=== PATIENT | female | born 1970 | race Caucasian/White ===

== ENCOUNTER 2019-08-30 08:00 | Outpatient (RCR) | payer MEDICAID, SELFPAY ==
[2019-08-23 08:20] VITALS: BP 149/80; PULSE 67; RESP 18; TEMP 36.5; BMI 45.7
--- NOTE | 2019-08-23 09:46 | HP.PCM_ITS ---
(1) Ulcer of right leg Status: Chronic Current Visit: Yes Qualifiers: Non-pressure ulcer stage: with fat layer exposed Qualified Code(s): L97.912 - Non-pressure chronic ulcer of unspecified part of right lower leg with fat layer exposed Code(s): L97.919 - Non-pressure chronic ulcer of unspecified part of right lower leg with unspecified severity (2) Varicose veins with ulcer and inflammation Status: Chronic Current Visit: Yes Code(s): I83.209 - Varicose veins of unspecified lower extremity with both ulcer of unspecified site and infl ammation; L97.909 - Non-pressure chronic ulcer of unspecified part of unspecified lower leg with unspecified severity (3) Chronic venous insufficiency Status: Chronic Current Visit: Yes Code(s): I87.2 - Venous insufficiency (chronic) (peripheral) (4) Leg swelling Status: Chronic Current Visit: Yes Code(s): M79.89 - Other specified soft tissue disorders (5) Leg edema Status: Chronic Current Visit: Yes Code(s): R60.0 - Localized edema (6) Morbid obesity with BMI of 45.0-49.9, adult Status: Chronic Current Visit: Yes Code(s): E66.01 - Morbid (severe) obesity due to excess calories; Z68.42 - Body mass index (BMI) 45.0-49.9, adult (7) Fibromyalgia Status: Chronic Current Visit: No Code(s): M79.7 - Fibromyalgia (8) Lumbar disc disease Status: Chronic Current Visit: No Code(s): M51.9 - Unspecified thoracic, thoracolumbar and lumbosacral intervertebral disc disorder (9) Anemia Status: Chronic Current Visit: No Code(s): D64.9 - Anemia, unspecified (10) Hypertension Status: Chronic Current Visit: No Code(s): I10 - Essential (primary) hypertension (11) Asthma Status: Chronic Current Visit: No Code(s): J45.909 - Unspecified asthma, uncomplicated (12) Medical marijuana use Status: Chronic Current Visit: No Code(s): Z79.899 - Other long term care phlebotomist (current) drug therapy History of Present Illness Date of Service: 08/23/19 Chief Complaint: Chronic, nonhealing ulceration on the right anterior tibial surface, associated with lower extremity swelling and edema History of Wound: The patient is a 49-year-old morbidly obese female who presents with an ulceration on the right anterior tibial surface. The ulceration has been present since November 2018. The patient feels as though this may have started as a bug bite. Nonetheless, she has known chronic venous insufficiency and varicose veins with inflammation, but has done very little by conservative means to address the issues. She relates swelling and edema in her lower extremities chronically. She denies a history of thrombophlebitis. She sleeps in a relatively recumbent position at night. She claims to be relatively active. She has had no bleeding from the ulcerated site. She has used combination of remedies for the ulceration, including topical antibiotic ointment, plain Band-Aids, and dry gauze. The ulceration has failed to heal. The patient has undergone venous duplex examination elsewhere in the recent past, the results of which are not available. Graduated compression stockings were recommended, but have not been implemented. Past Medical History Past Medical History: Chronic Problems Ulcer of right leg (Chronic) Varicose veins with ulcer and inflammation (Chronic) Chronic venous insufficiency (Chronic) Leg swelling (Chronic) Leg edema (Chronic) Morbid obesity with BMI of 45.0-49.9, adult (Chronic) Fibromyalgia (Chronic) Lumbar disc disease (Chronic) Anemia (Chronic) Hypertension (Chronic) Asthma (Chronic) Medical marijuana use (Chronic) Past Medical History: The patient has multiple medical problems, as documented elsewhere. Her history is negative for myocardial infarction, congestive heart failure, diabetes mellitus, cerebrovascular accident, cancer, renal disease, thyroid disease, and hyperlipidemia. Surgical History: - - Patient has a history of tonsillectomy in 1985. She is undergone wisdom tooth extraction in the past. She underwent surgery for an ectopic in 2001. Tubal ligation was performed in 2006. She is undergone cholecystectomy in the past. She is a G4, P2 Ab2. Allergies/Adverse Reactions: Allergies azithromycin Allergy (Verified 08/23/19 08:47) Fever and skin rash Sulfa (Sulfonamide Antibiotics) Allergy (Verified 08/23/19 08:47) Anaphylaxis Home Medications: Ambulatory Orders Medication Instructions Recorded ASA/Salicylam/Acetaminoph/Caff 1 ea PO 08/23/19 [Pain Relief Tablet] Amlodipine [Norvasc] 5 mg PO DAILY 08/23/19 Ascorbic Acid [Vitamin C] 1,000 mg PO 08/23/19 Etodolac [Lodine] 500 mg PO BID 08/23/19 Folic Acid 0.8 mg PO 08/23/19 Furosemide [Lasix] 20 mg PO DAILY 08/23/19 Lansoprazole [Prevacid] 30 mg PO BID 08/23/19 Loratadine [Claritin] 10 mg PO DAILY 08/23/19 Methocarbamol 500 mg PO BID 08/23/19 Montelukast [Singulair] 10 mg PO DAILY 08/23/19 - Family History Paternal - - The patient's father is living, aged 82, with a history of heart disease. Patient's mother is 84 years of age, with a history of breast cancer and thyroid cancer. Social History: Patient is . 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 Patient is and lives with her . Lives: Spouse/ Significant Other Tobacco Use: Non-smoker Alcohol: None Drugs: - - The patient uses medical marijuana. Review of Systems Constitutional: Denies: Chills, Fever, Weight Change Eyes: Denies: Pain, Vision Change HEENT: Denies: Difficulty Hearing, Difficulty Swallowing, Sinus Congestion Cardiovascular: Denies: Chest Pain, Palpitations Respiratory: Denies: Cough, Shortness of Breath Gastrointestinal: Denies: Diarrhea, Nausea, Vomiting Genitourinary: Denies: Dysuria, Hematuria Endocrine: Denies: Heat/ Cold Intolerance, Polydipsia, Polyuria Hematologic/ Lymphatic: Denies: Easy Bruising, Easy Bleeding - Physical Exam Vital Signs Temp Pulse Resp BP 97.7 F L 67 18 149/80 H 08/23/19 08:20 08/23/19 08:20 08/23/19 08:20 08/23/19 08:20 General: Alert, Oriented x3, Cooperative, No apparent distress, Well developed, Well nourished, - - The patient is morbidly obese. HEENT: Atraumatic, PERRLA, EOMI, Normocephalic Oral: Moist Mucosa Neck: Supple, No JVD, Negative Carotid Bruits, Negative Hepatojugular Reflux, No Nodes, No Nuchal Rigidity, Trachea Midline Lungs: Clear to auscultation, Normal air movement, No rhonchi, No wheeze, No rales Cardiovascular: Regular rate, Regular Rhythm, Normal S1, Normal S2, No murmurs Abdomen: Soft, Non Tender, Non-Distended, Obese Extremities: No clubbing, No cyanosis, No Calf Tenderness, - - Only very slight swelling and edema are noted in the patient's lower extremities. Multiple varicosities are noted bilaterally in the lower extremities. Some medium to large varicosities are noted in the area of the ulceration, located on the right anterior tibial surface. There is a moderate amount of bioburden and nonviable tissue present at the surface of the ulceration on the right anterior tibial surface. There is no sign of infection or cellulitis. Dimensions are documented elsewhere. Skin: No rashes Wound Measurements and Assessment WC - Nurse 1 - General Ulcer Measurement Start: 08/23/19 08:20 Freq: Status: Active Protocol: Activity Type Activity Date Activity User E-Sign Co-Sign Detail Recorded Client Recorded Date Recorded By Document 08/23/19 08:20 BS [id number] 08/23/19 08:38 BS 08/23/19 08:20 Wound Center Nurse 1 [Ulcer Assessment] #1 Right [place] -Combined with other wound No -Current Size (cm) - Length 0.1 -Current Size (cm) - Width 0.1 -Current Size (cm) - Depth 0.1 -Total Square Cm 0.01 -Date of Last Picture (Recall this 08/23/19 field) -Photo Taken Yes -Exudate Amt None Present -Wound Margin Flat & Intact -Texture (Richa-wound Skin Appearance) Assessed, Localized Edema ,Scarring -Moisture (Richa-wound Skin Appearance Assessed,Dry/ ) Scaly -Color (Richa-wound Skin Appearance) Assessed, Hemosiderin Staining -Temperature (Richa-wound Skin No Abnormality Appearance) (Pt Warm) -Tenderness on Palpation (Richa-wound No Skin Appearance) -Ulcer Cleansing Rinsed/ Irrigated with Saline -Foul Odor after Cleansing No -Anesthetic Used 5% Lidocaine Gel [Edema Assessment] -Lower Limb Edema Present Yes -Point of measurement (cm from the 46.6 medial instep) -Point of Measurement (cm from the 25.2 medial instep) -Left Calf (cm) 45.7 -Left Ankle (cm) 24.5 WC - Nurse 2 - General Ulcer CM Notes Start: 08/23/19 08:20 Freq: Status: Active Protocol: Activity Type Activity Date Activity User E-Sign Co-Sign Detail Recorded Client Recorded Date Recorded By Document 08/23/19 09:09 DV [id number] 08/23/19 09:23 DV 08/23/19 09:09 Wound Center Nurse 2 [Procedure/Treatment] #1 Right [place] -Time 09:10 -Correct Patient Yes -Correct Side, Site, Position Yes -Correct Procedure Yes -Procedure Performed Yes -Type of Procedure Debridement -Clinical Debridement Subcutaneous -Post Debridement Size (cm) - Length 0.5 -Post Debridement Size (cm) - Width 0.6 -Post Debridement Size (cm) - Depth 0.2 -Total Square Cm 0.30 -Wound/Ulcer Outcome Not Healed -Ulcer Cleansing Rinsed/ Irrigated with Saline -Foul Odor after Cleansing No -Bioengineered Tissue No -Bleeding Controlled with Pressure -Offloading No -Treatment Response Procedure Tolerated Well [See Physician Procedure note for Specifics] Pain Scale: 0-10 Numeric [Pain] -Is Patient Pain Free? Yes Musculoskeletal: No Muscle Wasting Neurological: Cranial nerves II-XII grossly intact, Neuro grossly intact Psych/Mental Status: Normal Affect, Appropriate, Alert and oriented to time, place, person, mood and affect Debridement Note Post-Debridement Measurements/Treatment WC - Nurse 2 - General Ulcer CM Notes Start: 08/23/19 08:20 Freq: Status: Active Protocol: Activity Type Activity Date Activity User E-Sign Co-Sign Detail Recorded Client Recorded Date Recorded By Document 08/23/19 09:09 DV [id number] 08/23/19 09:23 DV 08/23/19 09:09 Wound Center Nurse 2 #1 Right [place] -Time 09:10 -Correct Patient Yes -Correct Side, Site, Position Yes -Correct Procedure Yes -Procedure Performed Yes -Type of Procedure Debridement -Clinical Debridement Subcutaneous -Post Debridement Size (cm) - Length 0.5 -Post Debridement Size (cm) - Width 0.6 -Post Debridement Size (cm) - Depth 0.2 -Total Square Cm 0.30 -Wound/Ulcer Outcome Not Healed -Ulcer Cleansing Rinsed/ Irrigated with Saline -Foul Odor after Cleansing No -Bioengineered Tissue No -Bleeding Controlled with Pressure -Offloading No -Treatment Response Procedure Tolerated Well Pain Scale: 0-10 Numeric Is Patient Pain Free? Yes Laterality: Right - Anterior tibial surface Type of Debridement: Excisional debridement Anesthesia Used: 5% Lidocaine Gel Depth: Down to and including healthy tissue, in the subcutaneous layer Percentage of wound debrided: 100 Instrument Used: 5mm curette Tissue Removed: Bioburden and nonviable tissue Severity: Fat Layer Exposed Amount of bleeding with debridement: Mild Bleeding Controlled with: Compression and gauze Patient tolerated procedure well Assessment/Plan Active Problems Ulcer of right leg (Chronic) Varicose veins with ulcer and inflammation (Chronic) Chronic venous insufficiency (Chronic) Leg swelling (Chronic) Leg edema (Chronic) Morbid obesity with BMI of 45.0-49.9, adult (Chronic) Assessment: This is a 49-year-old morbidly obese female who presents with a chronic, nonhealing ulceration on the right anterior tibial surface. Patient has multiple medical problems, documented elsewhere. She is known to have a history of chronic venous insufficiency and varicose veins with inflammation. Despite her chronic venous disease, she has done very little in terms of conservative treatment measures. She does sleep on a flat surface at night. She claims to be relatively active. Plan: Curative treatment measures are to be implemented with respect to the patient's venous disease. The patient, and her at the bedside, have been counseled as to leg elevation. Patient's legs are to be elevated as much as possible, even during daytime hours. Leg elevation is to be to heart level, or higher. She is to continue sleeping on a flat surface at night. Prolonged idle sitting has been discouraged. Activity has been encouraged. Weight loss has been recommended, as the patient is morbidly obese. Compression will be initiated initially by means of SurePress wraps, which will be applied daily by the patient. The patient is to be instructed in the appropriate means of application of her wraps. Ultimately, it is anticipated that we will transition to the use of graduated compression stockings, of at least 20 to 30 mmHg compression. Patient has moderate drainage from her right lower extremity ulceration, we are to use MediHoney as a primary dressing, and gauze as a secondary dressing. Patient is to be instructed in the appropriate means of application. We are to obtain routine laboratory studies, including a CBC, comprehensive metabolic profile, and a serum prealbumin. A noninvasive lower extremity venous study will also be obtained, as well as a noninvasive lower extremity arterial study. The patient will return in 1 week for reassessment. Additional measures will be implemented based upon the patient's evolving clinical course. Influenza vaccine was not administered today. The patient is not a smoker. Patient weighs 292 pounds. She stands 5 feet 7 inches tall. Her BMI is 45.7, which places her in a class III obesity category. Weight loss has been recommended, and collaboration with her primary care physician in this regard has been advised.
[2019-08-23 11:59] LABS: Erythrocyte Sedimentation Rate 11 mm/hr (0-30)
[2019-08-23 12:26] LABS: ALB/GLOB Ratio 1.1 RATIO (0.9-2.4); AST(SGOT) 27 U/L (15-37); Alanine Aminotransfer ALT/SGPT 50 U/L (13-56); Alkaline Phosphatase 89 U/L (45-117); Anion Gap 8 (5-15); BUN 9 mg/dL (7-18); BUN/Creat Ratio 16.3 RATIO (10-20); Calcium,Total 9.1 mg/dL (8.5-10.1); Chloride 104 mmol/L (98-107); Creatinine, Serum 0.55 mg/dL (0.55-1.02); EST Glomerular Filtration Rate 124 mL/min (>60); Est Glom Filt Rate - Afr Amer 150 mL/min (>60); Globulin 3.8 g/dL (2.2-4.2); Glucose 85 mg/dL (74-106); Potassium 3.5 mmol/L (3.5-5.1); Prealbumin 21.8 mg/dL (20.0-40.0); Protein, Total 7.8 g/dL (6.4-8.2); Sodium Level 142 mmol/L (136-145)
[2019-08-23 12:29] LABS: Hematocrit 46.5 % (37-47); Hemoglobin 14.9 g/dL (12.0-15.0); Mean Corpuscular Volume 87.2 fL (81-99); Mean Platelet Vol. 11.3 fl (6.2-12.0); Platelet Count 301 K/mm3 (150-450); RBC Distribution Width CV 14.5 % (11.6-14.6); RBC Distribution Width SD 45.5 fl (35.1-43.9); Red Blood Count 5.33 M/mm3 (4.2-5.4); White Blood Count 7.2 K/mm3 (4.4-11.0)
[2019-08-30 08:04] VITALS: BP 164/107; PULSE 83; RESP 18; TEMP 36.6; BMI 45.7
--- NOTE | 2019-08-30 08:58 | PCM.WC.HP ---
(1) Ulcer of right leg Status: Chronic Current Visit: Yes Qualifiers: Non-pressure ulcer stage: with fat layer exposed Qualified Code(s): L97.912 - Non-pressure chronic ulcer of unspecified part of right lower leg with fat layer exposed Code(s): L97.919 - Non-pressure chronic ulcer of unspecified part of right lower leg with unspecified severity (2) Varicose veins with ulcer and inflammation Status: Chronic Current Visit: Yes Code(s): I83.209 - Varicose veins of unspecified lower extremity with both ulcer of unspecified site and inflammation; L97.909 - Non-pressure chronic ulcer of unspecified part of unspecified lower leg with unspecified severity (3) Chronic venous insufficiency Status: Chronic Current Visit: Yes Code(s): I87.2 - Venous insufficiency (chronic) (peripheral) (4) Leg swelling Status: Chronic Current Visit: Yes Code(s): M79.89 - Other specified soft tissue disorders (5) Leg edema Status: Chronic Current Visit: Yes Code(s): R60.0 - Localized edema (6) Morbid obesity with BMI of 45.0-49.9, adult Status: Chronic Current Visit: Yes Code(s): E66.01 - Morbid (severe) obesity due to excess calories; Z68.42 - Body mass index (BMI) 45.0-49.9, adult (7) Fibromyalgia Status: Chronic Current Visit: No Code(s): M79.7 - Fibromyalgia (8) Lumbar disc disease Status: Chronic Current Visit: No Code(s): M51.9 - Unspecified thoracic, thoracolumbar and lumbosacral intervertebral disc disorder (9) Anemia Status: Chronic Current Visit: No Code(s): D64.9 - Anemia, unspecified (10) Hypertension Status: Chronic Current Visit: No Code(s): I10 - Essential (primary) hypertension (11) Asthma Status: Chronic Current Visit: No Code(s): J45.909 - Unspecified asthma, uncomplicated (12) Medical marijuana use Status: Chronic Current Visit: No Code(s): Z79.899 - Other long term care pharmacist (current) drug therapy History of Present Illness Date of Service: 08/30/19 Chief Complaint: Chronic, nonhealing ulceration on the right anterior tibial surface, associated with lower extremity swelling and edema History of Wound: The patient is a 49-year-old morbidly obese female who presented with an ulceration on the right anterior tibial surface. The ulceration had been present since November 2018. The patient felt as though this may have started as a bug bite. Nonetheless, she has known chronic venous insufficiency and varicose veins with inflammation, but has done very little by conservative means to address the issues. She relates swelling and edema in her lower extremities chronically. She denies a history of thrombophlebitis. She sleeps in a relatively recumbent position at night. She claims to be relatively active. She has had no bleeding from the ulcerated site. She has used combination of remedies for the ulceration, including topical antibiotic ointment, plain Band-Aids, and dry gauze. The ulceration has failed to heal. The patient has undergone venous duplex examination elsewhere in the recent past, the results of which are not available. Graduated compression stockings were recommended, but have not been implemented. Past Medical History Past Medical History: Chronic Problems Ulcer of right leg (Chronic) Varicose veins with ulcer and inflammation (Chronic) Chronic venous insufficiency (Chronic) Leg swelling (Chronic) Leg edema (Chronic) Morbid obesity with BMI of 45.0-49.9, adult (Chronic) Fibromyalgia (Chronic) Lumbar disc disease (Chronic) Anemia (Chronic) Hypertension (Chronic) Asthma (Chronic) Medical marijuana use (Chronic) Surgical History: - - Patient has a history of tonsillectomy in 1985. She is undergone wisdom tooth extraction in the past. She underwent surgery for an ectopic in 2001. Tubal ligation was performed in 2006. She is undergone cholecystectomy in the past. She is a G4, P2 Ab2. Allergies/Adverse Reactions: Allergies azithromycin Allergy (Verified 08/23/19 08:47) Fever and skin rash Sulfa (Sulfonamide Antibiotics) Allergy (Verified 08/23/19 08:47) Anaphylaxis Home Medications: Ambulatory Orders Medication Instructions Recorded ASA/Salicylam/Acetaminoph/Caff 1 ea PO 08/23/19 [Pain Relief Tablet] Amlodipine [Norvasc] 5 mg PO DAILY 08/23/19 Ascorbic Acid [Vitamin C] 1,000 mg PO 08/23/19 Etodolac [Lodine] 500 mg PO BID 08/23/19 Folic Acid 0.8 mg PO 08/23/19 Furosemide [Lasix] 20 mg PO DAILY 08/23/19 Lansoprazole [Prevacid] 30 mg PO BID 08/23/19 Loratadine [Claritin] 10 mg PO DAILY 08/23/19 Methocarbamol 500 mg PO BID 08/23/19 Montelukast [Singulair] 10 mg PO DAILY 08/23/19 - Family History Paternal - - The patient's father is living, aged 82, with a history of heart disease. Patient's mother is 84 years of age, with a history of breast cancer and thyroid cancer. Lives: Spouse/ Significant Other Tobacco Use: Non-smoker Alcohol: None Drugs: - - The patient uses medical marijuana. Review of Systems Constitutional: Denies: Chills, Fever, Weight Change Eyes: Denies: Pain, Vision Change HEENT: Denies: Difficulty Hearing, Difficulty Swallowing, Sinus Congestion Cardiovascular: Denies: Chest Pain, Palpitations Respiratory: Denies: Cough, Shortness of Breath Gastrointestinal: Denies: Diarrhea, Nausea, Vomiting Genitourinary: Denies: Dysuria, Hematuria Endocrine: Denies: Heat/ Cold Intolerance, Polydipsia, Polyuria Hematologic/ Lymphatic: Denies: Easy Bruising, Easy Bleeding - Physical Exam Vital Signs Temp Pulse Resp BP 97.8 F 83 18 164/107 H 08/30/19 08:04 08/30/19 08:04 08/30/19 08:04 08/30/19 08:04 General: Alert, Oriented x3, Cooperative, No apparent distress, Well developed, Well nourished, - - The patient is obese. HEENT: Atraumatic, PERRLA, EOMI, Normocephalic Oral: Moist Mucosa Neck: No JVD Lungs: Normal air movement Abdomen: Non-Distended, Obese Extremities: No clubbing, No cyanosis, No edema, No Calf Tenderness, - - There appears to be no significant swelling or edema in the patient's right lower extremity. The ulceration on the right anterior tibial surface persists. It is little changed in size or appearance. Dimensions are documented elsewhere. There is a moderate amount of bioburden and nonviable tissue present. There is also the new development of irma-ulcer erythema, appearing to be cellulitic in nature. Dimensions are documented elsewhere. Wound Measurements and Assessment WC - Nurse 1 - General Ulcer Measurement Start: 08/23/19 08:20 Freq: Status: Active Protocol: Activity Type Activity Date Activity User E-Sign Co-Sign Detail Recorded Client Recorded Date Recorded By Document 08/30/19 08:04 DL [id number] 08/30/19 08:14 DL 08/30/19 08:04 Wound Center Nurse 1 [Ulcer Assessment] #1 Right [place] -Current Size (cm) - Length 1.2 -Current Size (cm) - Width 0.8 -Current Size (cm) - Depth 0.2 -Total Square Cm 0.96 -Photo Taken No -Exudate Amt Small -Exudate Type Serosanguineous -Wound Margin Distinct, Outline Attached -Granulation Amt Large (67-100%) -Granulation Quality Red -Necrosis Amt Small (1-33%) -Necrotic Tissue Type Adherent Slough -Structure Exposed N/A -Texture (Irma-wound Skin Appearance) Scarring -Moisture (Irma-wound Skin Appearance No Abnormality ) -Color (Irma-wound Skin Appearance) Erythema,Rubor -Temperature (Irma-wound Skin No Abnormality Appearance) (Pt Warm) -Tenderness on Palpation (Irma-wound No Skin Appearance) -Ulcer Cleansing Rinsed/ Irrigated with Saline -Foul Odor after Cleansing No -Anesthetic Used 4% Lidocaine Solution,5% Lidocaine Gel [Edema Assessment] -Right Calf (cm) 47.5 -Right Ankle (cm) 23.4 WC - Nurse 2 - General Ulcer CM Notes Start: 08/23/19 08:20 Freq: Status: Active Protocol: Activity Type Activity Date Activity User E-Sign Co-Sign Detail Recorded Client Recorded Date Recorded By Document 08/30/19 08:44 DV [id number] 08/30/19 08:52 DV 08/30/19 08:44 Wound Center Nurse 2 [Procedure/Treatment] #1 Right [place] -Time 08:44 -Correct Patient Yes -Correct Side, Site, Position Yes -Correct Procedure Yes -Procedure Performed Yes -Type of Procedure Debridement -Clinical Debridement Subcutaneous -Post Debridement Size (cm) - Length 1.0 -Post Debridement Size (cm) - Width 1.0 -Post Debridement Size (cm) - Depth 0.2 -Total Square Cm 1.00 -Wound/Ulcer Outcome Not Healed -Ulcer Cleansing Rinsed/ Irrigated with Saline -Foul Odor after Cleansing No -Bioengineered Tissue No -Bleeding Controlled with Pressure -Offloading No -Treatment Response Procedure Tolerated Well [See Physician Procedure note for Specifics] Pain Scale: 0-10 Numeric [Pain] -Is Patient Pain Free? Yes Musculoskeletal: No Muscle Wasting Neurological: Cranial nerves II-XII grossly intact, Neuro grossly intact Psych/Mental Status: Normal Affect, Appropriate, Alert and oriented to time, place, person, mood and affect Debridement Note Post-Debridement Measurements/Treatment WC - Nurse 2 - General Ulcer CM Notes Start: 08/23/19 08:20 Freq: Status: Active Protocol: Activity Type Activity Date Activity User E-Sign Co-Sign Detail Recorded Client Recorded Date Recorded By Document 08/23/19 09:09 DV [id number] 08/23/19 09:23 DV Document 08/30/19 08:44 DV [id number] 08/30/19 08:52 DV 08/23/19 08/30/19 09:09 08:44 Wound Center Nurse 2 #1 Right [place] -Time 09:10 08:44 -Correct Patient Yes Yes -Correct Side, Site, Position Yes Yes -Correct Procedure Yes Yes -Procedure Performed Yes Yes -Type of Procedure Debridement Debridement -Clinical Debridement Subcutaneous Subcutaneous -Post Debridement Size (cm) - Length 0.5 1.0 -Post Debridement Size (cm) - Width 0.6 1.0 -Post Debridement Size (cm) - Depth 0.2 0.2 -Total Square Cm 0.30 1.00 -Wound/Ulcer Outcome Not Healed Not Healed -Ulcer Cleansing Rinsed/ Rinsed/ Irrigated with Irrigated with Saline Saline -Foul Odor after Cleansing No No -Bioengineered Tissue No No -Bleeding Controlled with Pressure Pressure -Offloading No No -Treatment Response Procedure Procedure Tolerated Well Tolerated Well Pain Scale: 0-10 Numeric Is Patient Pain Free? Yes Yes Laterality: Right - Anterior tibial surface Type of Debridement: Excisional debridement Anesthesia Used: 5% Lidocaine Gel Depth: Down to and including healthy tissue, in the subcutaneous layer Percentage of wound debrided: 100 Instrument Used: 5mm curette Tissue Removed: Bioburden and nonviable tissue. Severity: Fat Layer Exposed Amount of bleeding with debridement: Mild Bleeding Controlled with: Compression and gauze Patient tolerated procedure well - Although the patient did tolerate the debridement procedure, she did experience a mild amount of discomfort. Topical lidocaine gel had been previously applied. Assessment/Plan Active Problems Ulcer of right leg (Chronic) Varicose veins with ulcer and inflammation (Chronic) Chronic venous insufficiency (Chronic) Leg swelling (Chronic) Leg edema (Chronic) Morbid obesity with BMI of 45.0-49.9, adult (Chronic) Assessment: This is a 49-year-old morbidly obese female who presents with a chronic, nonhealing ulceration on the right anterior tibial surface. Patient has multiple medical problems, documented elsewhere. She is known to have a history of chronic venous insufficiency and varicose veins with inflammation. Despite her chronic venous disease, she has done very little in terms of conservative treatment measures. She does sleep on a flat surface at night. She claims to be relatively active. Patient has undergone a battery of laboratory tests, the results of which are as follows: Glucose 85, BUN 9, creatinine 0.55, total protein 7.8, albumin 4.0, calcium 9.1, AST 27, alkaline phosphatase 89, ALT 50, sodium 142, potassium 3.5, chloride 104, prealbumin 21.8, white blood count 7.2, hemoglobin 14.9, hematocrit 46.5, platelets 301,000, sed rate 11. These laboratory results are normal. The patient is scheduled to undergo a noninvasive lower extremity arterial study and a venous duplex examination in 6 days, 1 day prior to her next follow-up appointment. Plan: Conservative treatment measures are to be continued with respect to the patient's venous disease. The patient has been counseled as to leg elevation. Patient's legs are to be elevated as much as possible, even during daytime hours. Leg elevation is to be to heart level, or higher. She is to continue sleeping on a flat surface at night. Prolonged idle sitting has been discouraged. Activity has been encouraged. Weight loss has been recommended, as the patient is morbidly obese. Compression will be continued by means of SurePress wraps, which will be applied daily by the patient. The patient has to be instructed in the appropriate means of application of her wraps. Ultimately, it is anticipated that we will transition to the use of graduated compression stockings, of at least 20 to 30 mmHg compression. We are to transition from the use of MediHoney to the use of Promogran, which will be applied topically on a daily basis. Consideration had been given to the use of Felisa, but the patient claims an allergy to silver. Patient is to be instructed in the appropriate means of application of Promogran. We will monitor the patient's response to the use of Promogran. Given the irma-ulcer erythema noted today, swab cultures have been obtained for both aerobic and anaerobic bacterial growth. We will await these results, and respond accordingly. We will await the results of the patient's vascular studies, scheduled prior to her follow-up visit in 1 week. . Additional measures will be implemented based upon the patient's evolving clinical course. Optimization of the patient's nutrition has been recommended. Influenza vaccine was not administered today. The patient is not a smoker. Patient weighs 292 pounds. She stands 5 feet 7 inches tall. Her BMI is 45.7, which places her in a class III obesity category. Weight loss has been recommended, and collaboration with her primary care physician in this regard has been advised.
[2019-08-30 14:16] LABS: M R Staph aureus DNA By PCR Negative (Negative); Probe Check PASS; Specimen Processing Control PASS; Staph aureus DNA By PCR POSITIVE (Negative)
--- NOTE | 2019-09-02 14:28 | WC ---
DR THOMAS REVIEWED WOUND CX'S. GIVES ORDER FOR AUGMENTIN 875MG 1 PO BID X 10 DAYS. 20 TABS, NO REFILLS. CALLED PT AND VERIFIED ALLERGIES. RX CALLED TO [facility] PER PT PREFERENCE.
== END 2019-09-06 23:59 ==
LOC: WC 08:00
PROVIDERS: Referring Provider Surgery; Visit Provider Surgery
DX: I83.218 Varicose veins of right lower extremity with both ulcer of other part of lower extremity and inflammation (principal); L97.812 Non-pressure chronic ulcer of other part of right lower leg with fat layer exposed; E66.01 Morbid (severe) obesity due to excess calories; Z68.42 Body mass index [BMI] 45.0-49.9, adult; M79.7 Fibromyalgia; R60.0 Localized edema; I10 Essential (primary) hypertension; J45.909 Unspecified asthma, uncomplicated
CPT/HCPCS: 11042; 80053; 84134; 85027; 85652; 87070; 87075; 87077; 87186; 87205; 87640; 99203; G0463

== ENCOUNTER 2019-11-01 08:00 | Outpatient (RCR) | payer MEDICAID, SELFPAY ==
[2019-09-07 00:59] VITALS: BP 164/107; PULSE 83; RESP 18; TEMP 36.6
--- NOTE | 2019-09-27 12:26 | PCM.WC.HP ---
(1) Ulcer of right leg Status: Chronic Qualifiers: Non-pressure ulcer stage: with fat layer exposed Code(s): L97.919 - Non-pressure chronic ulcer of unspecified part of right lower leg with unspecified severity (2) Varicose veins with ulcer and inflammation Status: Chronic Code(s): I83.209 - Varicose veins of unspecified lower extremity with both ulcer of unspecified site and inflammation; L97.909 - Non-pressure chronic ulcer of unspecified part of unspecified lower leg with unspecified severity (3) Chronic venous insufficiency Status: Chronic Code(s): I87.2 - Venous insufficiency (chronic) (peripheral) (4) Leg swelling Status: Chronic Code(s): M79.89 - Other specified soft tissue disorders (5) Leg edema Status: Chronic Code(s): R60.0 - Localized edema (6) Morbid obesity with BMI of 45.0-49.9, adult Status: Chronic Code(s): E66.01 - Morbid (severe) obesity due to excess calories; Z68.42 - Body mass index (BMI) 45.0-49.9, adult (7) Fibromyalgia Status: Chronic Code(s): M79.7 - Fibromyalgia (8) Lumbar disc disease Status: Chronic Code(s): M51.9 - Unspecified thoracic, thoracolumbar and lumbosacral intervertebral disc disorder (9) Anemia Status: Chronic Code(s): D64.9 - Anemia, unspecified (10) Hypertension Status: Chronic Code(s): I10 - Essential (primary) hypertension (11) Asthma Status: Chronic Code(s): J45.909 - Unspecified asthma, uncomplicated (12) Medical marijuana use Status: Chronic Code(s): Z79.899 - Other intermediate card tender (current) drug therapy History of Present Illness Date of Service: 09/27/19 - TELEHEALTH VISIT Chief Complaint: Chronic, nonhealing ulceration on the right anterior tibial surface, associated with lower extremity swelling and edema - TeleHealth Visit History of Wound: The patient is a 49-year-old morbidly obese female who presented with an ulceration on the right anterior tibial surface. The ulceration had been present since November 2018. The patient felt as though this may have started as a bug bite. Nonetheless, she has known chronic venous insufficiency and varicose veins with inflammation, but has done very little by conservative means to address the issues. She relates swelling and edema in her lower extremities chronically. She denies a history of thrombophlebitis. She sleeps in a relatively recumbent position at night. She claims to be relatively active. She has had no bleeding from the ulcerated site. She has used combination of remedies for the ulceration, including topical antibiotic ointment, plain Band-Aids, and dry gauze. The ulceration has failed to heal. The patient has undergone venous duplex examination elsewhere in the recent past, the results of which are not available. Graduated compression stockings were recommended, but have not been implemented. Past Medical History Past Medical History: Chronic Problems Ulcer of right leg (Chronic) Varicose veins with ulcer and inflammation (Chronic) Chronic venous insufficiency (Chronic) Leg swelling (Chronic) Leg edema (Chronic) Morbid obesity with BMI of 45.0-49.9, adult (Chronic) Fibromyalgia (Chronic) Lumbar disc disease (Chronic) Anemia (Chronic) Hypertension (Chronic) Asthma (Chronic) Medical marijuana use (Chronic) Surgical History: - - Patient has a history of tonsillectomy in 1985. She is undergone wisdom tooth extraction in the past. She underwent surgery for an ectopic in 2001. Tubal ligation was performed in 2006. She is undergone cholecystectomy in the past. She is a G4, P2 Ab2. Allergies/Adverse Reactions: Allergies azithromycin Allergy (Verified 08/23/19 08:47) Fever and skin rash Sulfa (Sulfonamide Antibiotics) Allergy (Verified 08/23/19 08:47) Anaphylaxis Home Medications: Ambulatory Orders Medication Instructions Recorded ASA/Salicylam/Acetaminoph/Caff 1 ea PO 08/23/19 [Pain Relief Tablet] Amlodipine [Norvasc] 5 mg PO DAILY 08/23/19 Ascorbic Acid [Vitamin C] 1,000 mg PO 08/23/19 Etodolac [Lodine] 500 mg PO BID 08/23/19 Folic Acid 0.8 mg PO 08/23/19 Furosemide [Lasix] 20 mg PO DAILY 08/23/19 Lansoprazole [Prevacid] 30 mg PO BID 08/23/19 Loratadine [Claritin] 10 mg PO DAILY 08/23/19 Methocarbamol 500 mg PO BID 08/23/19 Montelukast [Singulair] 10 mg PO DAILY 08/23/19 - Family History Paternal - - The patient's father is living, aged 82, with a history of heart disease. Patient's mother is 84 years of age, with a history of breast cancer and thyroid cancer. Tobacco Use: Non-smoker Review of Systems Constitutional: Denies: Chills, Fever, Weight Change Eyes: Denies: Pain, Vision Change HEENT: Denies: Difficulty Hearing, Difficulty Swallowing, Sinus Congestion Cardiovascular: Denies: Chest Pain, Palpitations Respiratory: Denies: Cough, Shortness of Breath Gastrointestinal: Denies: Diarrhea, Nausea, Vomiting Genitourinary: Denies: Dysuria, Hematuria Endocrine: Denies: Heat/ Cold Intolerance, Polydipsia, Polyuria Hematologic/ Lymphatic: Denies: Easy Bruising, Easy Bleeding - Physical Exam Vital Signs Temp Pulse Resp BP 97.8 F 83 18 164/107 H 09/07/19 00:59 09/07/19 00:59 09/07/19 00:59 09/07/19 00:59 General: Alert, Oriented x3, Cooperative, No apparent distress, Well developed, Well nourished, - - The patient's coloring appears good. She appears alert, oriented, appropriate, and conversant. The patient appears to be in no acute distress. HEENT: Atraumatic, PERRLA, EOMI, Normocephalic Lungs: Normal air movement, - - Respirations appear to be unlabored. Extremities: No edema, - - Patient's ulceration persists on the right anterior tibial surface. She was able to demonstrate the ulceration visually, using her smart phone. There did not appear to be significant erythema or redness. There is no obvious sign of infection or cellulitis. Patient does relate moderate drainage, though difficult to assess visually. The ulceration appears generally pink in appearance, with perhaps a moderate amount of bioburden. Dimensions are estimated based upon relative sizing, in comparison to the patient's thumb and a dime. Estimation of the dimensions are 0.5 cm x 0.5 cm x 0.1 cm. Skin: No rashes Neurological: Cranial nerves II-XII grossly intact, Neuro grossly intact Psych/Mental Status: Normal Affect, Appropriate, Alert and oriented to time, place, person, mood and affect Debridement Note No debridement was completed today - This was a telehealth patient interaction. Assessment/Plan Assessment: Today's patient assessment was performed by means of TeleHealth interaction. Both audio and visual to a interaction were conducted by means of . The visit was also attended by immigration case worker, Tyesha Gutierrez RN. Patient consent was obtained, and witnessed by Tyesha Gutierrez. The telehealth visit started at 11:00 AM, and was concluded at 11:25 AM. The medical staff was located at the [facility]. The patient was located at her place of employment, [employer] [place] [employer]. The patient had been able to take her temperature, which was stated to be 98.4. She did not have a blood pressure cuff available. The patient indicated that she has been doing well, without significant problems. She acknowledged that she has missed several recent appointments. The difficulties in scheduling appear to have been due to missed communications. Cultures of the patient's ulceration has been performed on August 30, 2019, with growth of Staphylococcus aureus and Staphylococcus epidermidis. The patient was placed on Augmentin 875 mg p.o. BID, which has been completed. The patient indicates that the erythema in this has largely abated. She claims to have moderate drainage, at times. We have received copies of a venous study, which was performed 1 year ago, indicating incompetence of the right great saphenous vein. An arterial study, recently ordered, has not yet been performed due to [facility]- scheduling protocols. The patient indicates that she has continued to elevate her lower extremities, and has been using SurePress wraps on a daily basis with some degree of consistency. She indicates that the wraps are starting to show some wear. The patient continues to take a well-balanced and nutritious diet. She has been using Promogran topically on a daily basis, with the occasional application of Medihoney. We have discussed management options, and we are to continue with the current measures. The patient is in need of additional Promogran and MediHoney, and efforts will be made to supply the patient with the needed items. Additionally, we have prescribed graduated compression stockings, knee-high length, of 20 to 30 mmHg compression. These are to be obtained by the patient at her local medical supply store. In general, the patient appears to be doing reasonably well, and is to be given a follow-up appointment at our facility in 2 weeks. She is to contact us should problems develop in the interim. This is a 49-year-old morbidly obese female who presented with a chronic, nonhealing ulceration on the right anterior tibial surface. Patient has multiple medical problems, documented elsewhere. She is known to have a history of chronic venous insufficiency and varicose veins with inflammation. Despite her chronic venous disease, she has done very little in terms of conservative treatment measures. She does sleep on a flat surface at night. She claims to be relatively active. Patient has undergone a battery of laboratory tests, the results of which are as follows: Glucose 85, BUN 9, creatinine 0.55, total protein 7.8, albumin 4.0, calcium 9.1, AST 27, alkaline phosphatase 89, ALT 50, sodium 142, potassium 3.5, chloride 104, prealbumin 21.8, white blood count 7.2, hemoglobin 14.9, hematocrit 46.5, platelets 301,000, sed rate 11. These laboratory results are normal. Plan: Conservative treatment measures are to be continued with respect to the patient's venous disease. The patient has been counseled as to leg elevation. Patient's legs are to be elevated as much as possible, even during daytime hours. Leg elevation is to be to heart level, or higher. She is to continue sleeping on a flat surface at night. Prolonged idle sitting has been discouraged. Activity has been encouraged. Weight loss has been recommended, as the patient is morbidly obese. Compression will be continued by means of SurePress wraps, which will be applied daily by the patient. We have prescribed graduated compression stockings of 20 to 30 mmHg compression, which are to be obtained by the patient at her local medical supply store. The patient is to continue the use of Promogran applied topically on a daily basis, as well as intermittent use of MediHoney. We will monitor the patient's response. Optimization of the patient's nutrition has been recommended. The patient is to return to our facility in 2 weeks. Influenza vaccine was not administered today. The patient is not a smoker. Patient weighs 292 pounds. She stands 5 feet 7 inches tall. Her BMI is 45.7, which places her in a class III obesity category. Weight loss has been recommended, and collaboration with her primary care physician in this regard has been advised.
[2019-10-11 08:22] VITALS: BP 175/96; PULSE 73; RESP 18; TEMP 36.8; BMI 45.7
--- NOTE | 2019-10-11 10:17 | HP.PCM_ITS ---
(1) Ulcer of right leg Status: Chronic Current Visit: Yes Qualifiers: Non-pressure ulcer stage: with fat layer exposed Code(s): L97.919 - Non-pressure chronic ulcer of unspecified part of right lower leg with unspecified severity (2) Varicose veins with ulcer and inflammation Status: Chronic Current Visit: Yes Code(s): I83.209 - Varicose veins of unspecified lower extremity with both ulcer of unspecified site and inflammation; L97.909 - Non-pressure chronic ulcer of unspecified part of unspecified lower leg with unspecified severity (3) Chronic venous insufficiency Status: Chronic Current Visit: Yes Code(s): I87.2 - Venous insufficiency (chronic) (peripheral) (4) Leg swelling Status: Chronic Current Visit: Yes Code(s): M79.89 - Other specified soft tissue disorders (5) Leg edema Status: Chronic Current Visit: Yes Code(s): R60.0 - Localized edema (6) Morbid obesity with BMI of 45.0-49.9, adult Status: Chronic Current Visit: No Code(s): E66.01 - Morbid (severe) obesity due to excess calories; Z68.42 - Body mass index (BMI) 45.0-49.9, adult (7) Fibromyalgia Status: Chronic Current Visit: No Code(s): M79.7 - Fibromyalgia (8) Lumbar disc disease Status: Chronic Current Visit: No Code(s): M51.9 - Unspecified thoracic, thoracolumbar and lumbosacral intervertebral disc disorder (9) Anemia Status: Chronic Current Visit: No Code(s): D64.9 - Anemia, unspecified (10) Hypertension Status: Chronic Current Visit: No Code(s): I10 - Essential (primary) hypertension (11) Asthma Status: Chronic Current Visit: No Code(s): J45.909 - Unspecified asthma, uncomplicated (12) Medical marijuana use Status: Chronic Current Visit: No Code(s): Z79.899 - Other assisted (current) drug therapy History of Present Illness Date of Service: 10/11/19 Chief Complaint: Chronic, nonhealing ulceration on the right anterior tibial surface, associated with lower extremity swelling and edema History of Wound: The patient is a 49-year-old morbidly obese female who presented with an ulceration on the right anterior tibial surface. The ulceration had been present since November 2018. The patient felt as though this may have started as a bug bite. Nonetheless, she has known chronic venous insufficiency and varicose veins with inflammation, but has done very little by conservative means to address the issues. She relates swelling and edema in her lower extremities chronically. She denies a history of thrombophlebitis. She sleeps in a relatively recumbent position at night. She claims to be relatively active. She has had no bleeding from the ulcerated site. She has used combination of remedies for the ulceration, including topical antibiotic ointment, plain Band-Aids, and dry gauze. The ulceration has failed to heal. The patient has undergone venous duplex examination elsewhere in the recent past, the results of which are not available. Graduated compression stockings were recommended, but had not been implemented. Past Medical History Past Medical History: Chronic Problems Ulcer of right leg (Chronic) Varicose veins with ulcer and inflammation (Chronic) Chronic venous insufficiency (Chronic) Leg swelling (Chronic) Leg edema (Chronic) Morbid obesity with BMI of 45.0-49.9, adult (Chronic) Fibromyalgia (Chronic) Lumbar disc disease (Chronic) Anemia (Chronic) Hypertension (Chronic) Asthma (Chronic) Medical marijuana use (Chronic) Surgical History: - - Patient has a history of tonsillectomy in 1985. She is undergone wisdom tooth extraction in the past. She underwent surgery for an ectopic in 2001. Tubal ligation was performed in 2006. She is undergone cholecystectomy in the past. She is a G4, P2 Ab2. Allergies/Adverse Reactions: Allergies azithromycin Allergy (Verified 08/23/19 08:47) Fever and skin rash Sulfa (Sulfonamide Antibiotics) Allergy (Verified 08/23/19 08:47) Anaphylaxis Home Medications: Ambulatory Orders Medication Instructions Recorded ASA/Salicylam/Acetaminoph/Caff 1 ea PO 08/23/19 [Pain Relief Tablet] Amlodipine [Norvasc] 5 mg PO DAILY 08/23/19 Ascorbic Acid [Vitamin C] 1,000 mg PO 08/23/19 Etodolac [Lodine] 500 mg PO BID 08/23/19 Folic Acid 0.8 mg PO 08/23/19 Furosemide [Lasix] 20 mg PO DAILY 08/23/19 Lansoprazole [Prevacid] 30 mg PO BID 08/23/19 Loratadine [Claritin] 10 mg PO DAILY 08/23/19 Methocarbamol 500 mg PO BID 08/23/19 Montelukast [Singulair] 10 mg PO DAILY 08/23/19 - Family History Paternal - - The patient's father is living, aged 82, with a history of heart disease. Patient's mother is 84 years of age, with a history of breast cancer and thyroid cancer. Tobacco Use: Non-smoker Review of Systems Constitutional: Denies: Chills, Fever, Weight Change Eyes: Denies: Pain, Vision Change HEENT: Denies: Difficulty Hearing, Difficulty Swallowing, Sinus Congestion Cardiovascular: Denies: Chest Pain, Palpitations Respiratory: Denies: Cough, Shortness of Breath Gastrointestinal: Denies: Diarrhea, Nausea, Vomiting Genitourinary: Denies: Dysuria, Hematuria Endocrine: Denies: Heat/ Cold Intolerance, Polydipsia, Polyuria Hematologic/ Lymphatic: Denies: Easy Bruising, Easy Bleeding - Physical Exam Vital Signs Temp Pulse Resp BP 98.2 F 73 18 175/96 H 10/11/19 08:22 10/11/19 08:22 10/11/19 08:22 10/11/19 08:22 General: Alert, Oriented x3, Cooperative, No apparent distress, Well developed, Well nourished HEENT: Atraumatic, PERRLA, EOMI, Normocephalic Oral: Moist Mucosa Neck: No JVD Lungs: Normal air movement Abdomen: Non-Distended, Obese Extremities: No clubbing, No cyanosis, No edema, No Calf Tenderness, - - The ulceration on the right anterior tibial surface persists. There is no sign of infection or cellulitis. There is a moderate amount of bioburden. Dimensions are documented elsewhere. There is no significant swelling or edema in the right lower extremity. There are scattered varicosities of various sizes. Skin: No rashes Wound Measurements and Assessment WC - Nurse 1 - General Ulcer Measurement Start: 10/11/19 08:22 Freq: Status: Active Protocol: Activity Type Activity Date Activity User E-Sign Co-Sign Detail Recorded Client Recorded Date Recorded By Document 10/11/19 08:22 DV [id number] 10/11/19 08:26 DV 10/11/19 08:22 Wound Center Nurse 1 [Ulcer Assessment] #1 Right [place] -Current Size (cm) - Length 0.5 -Current Size (cm) - Width 0.5 -Current Size (cm) - Depth 0.1 -Total Square Cm 0.25 -Photo Taken Yes -Exudate Amt None Present -Wound Margin Distinct, Outline Attached -Granulation Amt Small (1-33%) -Granulation Quality Red -Necrosis Amt None Present (0 %) -Structure Exposed N/A -Texture (Richa-wound Skin Appearance) Scarring -Moisture (Richa-wound Skin Appearance No Abnormality ) -Color (Richa-wound Skin Appearance) Hemosiderin Staining -Temperature (Richa-wound Skin No Abnormality Appearance) (Pt Warm) -Tenderness on Palpation (Richa-wound No Skin Appearance) -Ulcer Cleansing Rinsed/ Irrigated with Saline -Foul Odor after Cleansing No -Anesthetic Used 4% Lidocaine Solution [Edema Assessment] -Right Calf (cm) 51.5 -Right Ankle (cm) 24.8 -Left Calf (cm) 52 -Left Ankle (cm) 25 WC - Nurse 2 - General Ulcer CM Notes Start: 10/11/19 08:22 Freq: Status: Active Protocol: Activity Type Activity Date Activity User E-Sign Co-Sign Detail Recorded Client Recorded Date Recorded By Document 10/11/19 08:31 DV [id number] 10/11/19 08:35 DV 10/11/19 08:31 Wound Center Nurse 2 [Procedure/Treatment] #1 Right [place] -Time 08:32 -Correct Patient Yes -Correct Side, Site, Position Yes -Correct Procedure Yes -Procedure Performed Yes -Type of Procedure Debridement -Clinical Debridement Subcutaneous -Post Debridement Size (cm) - Length 0.6 -Post Debridement Size (cm) - Width 0.4 -Post Debridement Size (cm) - Depth 0.1 -Total Square Cm 0.24 -Wound/Ulcer Outcome Not Healed -Ulcer Cleansing Rinsed/ Irrigated with Saline -Foul Odor after Cleansing No -Bioengineered Tissue No -Bleeding Controlled with Pressure -Offloading No -Treatment Response Procedure Tolerated Well [See Physician Procedure note for Specifics] Pain Scale: 0-10 Numeric [Pain] -Is Patient Pain Free? Yes Musculoskeletal: No Muscle Wasting Neurological: Cranial nerves II-XII grossly intact, Neuro grossly intact Psych/Mental Status: Normal Affect, Appropriate, Alert and oriented to time, place, person, mood and affect Debridement Note Post-Debridement Measurements/Treatment WC - Nurse 2 - General Ulcer CM Notes Start: 10/11/19 08:22 Freq: Status: Active Protocol: Activity Type Activity Date Activity User E-Sign Co-Sign Detail Recorded Client Recorded Date Recorded By Document 10/11/19 08:31 DV [id number] 10/11/19 08:35 DV 10/11/19 08:31 Wound Center Nurse 2 #1 Right [place] -Time 08:32 -Correct Patient Yes -Correct Side, Site, Position Yes -Correct Procedure Yes -Procedure Performed Yes -Type of Procedure Debridement -Clinical Debridement Subcutaneous -Post Debridement Size (cm) - Length 0.6 -Post Debridement Size (cm) - Width 0.4 -Post Debridement Size (cm) - Depth 0.1 -Total Square Cm 0.24 -Wound/Ulcer Outcome Not Healed -Ulcer Cleansing Rinsed/ Irrigated with Saline -Foul Odor after Cleansing No -Bioengineered Tissue No -Bleeding Controlled with Pressure -Offloading No -Treatment Response Procedure Tolerated Well Pain Scale: 0-10 Numeric Is Patient Pain Free? Yes Laterality: Right - Anterior tibial surface Type of Debridement: Excisional debridement Anesthesia Used: 5% Lidocaine Gel Depth: Down to and including healthy tissue, in the subcutaneous layer Percentage of wound debrided: 100 Instrument Used: 3mm curette Tissue Removed: Bioburden and nonviable tissue Severity: Fat Layer Exposed Amount of bleeding with debridement: Mild Bleeding Controlled with: Compression and gauze Patient tolerated procedure well Assessment/Plan Active Problems Ulcer of right leg (Chronic) Varicose veins with ulcer and inflammation (Chronic) Chronic venous insufficiency (Chronic) Leg swelling (Chronic) Leg edema (Chronic) Assessment: The patient indicated that she has been doing well, without significant problems. She acknowledged that she has missed several recent appointments. The difficulties in scheduling appear to have been due to missed communications. Cultures of the patient's ulceration has been performed on August 30, 2019, with growth of Staphylococcus aureus and Staphylococcus epidermidis. The patient was placed on Augmentin 875 mg p.o. BID, which has been completed. The erythema has largely abated. We have received copies of a venous study, which was performed 1 year ago, indicating incompetence of the right great saphenous vein. An arterial study, recently ordered, has not yet been performed due to COVID-19 scheduling protocols. We are to request a venous duplex examination as well. The patient indicates that she has continued to elevate her lower extremities, and has been using SurePress wraps on a daily basis with some degree of consistency. 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 She is the sole employee at the establishment at this time, and considers her job to be essential. Therefore, the patient has spent long hours on her feet while at work, and has not been elevating her lower extremities nearly as much as advised. She has had some difficulties in keeping the SurePress wraps in place. The patient continues to take a well-balanced and nutritious diet. She has been using Promogran topically on a daily basis, with the occasional application of Medihoney. We have discussed management options, and we are to continue with the current measures. Additionally, we have prescribed graduated compression stockings, knee-high length, of 20 to 30 mmHg compression. These are to be obtained by the patient at her local medical supply store. In the interim, the patient is to be given Tubigrip's, which she will wear on a daily basis, until which time she obtains her graduated compression stockings, which will be of 20 to 30 mmHg compression. In general, the patient appears to be doing reasonably well, and is to be given a follow-up appointment at our facility in 2 weeks. She is to contact us should problems develop in the interim. This is a 49-year-old morbidly obese female who presented with a chronic, nonhealing ulceration on the right anterior tibial surface. Patient has multiple medical problems, documented elsewhere. She is known to have a history of chronic venous insufficiency and varicose veins with inflammation. D espite her chronic venous disease, she has done very little in terms of conservative treatment measures. She does sleep on a flat surface at night. She claims to be relatively active. Patient has undergone a battery of laboratory tests, the results of which are as follows: Glucose 85, BUN 9, creatinine 0.55, total protein 7.8, albumin 4.0, calcium 9.1, AST 27, alkaline phosphatase 89, ALT 50, sodium 142, potassium 3.5, chloride 104, prealbumin 21.8, white blood count 7.2, hemoglobin 14.9, hematocrit 46.5, platelets 301,000, sed rate 11. These laboratory results are normal. Plan: Conservative treatment measures are to be continued with respect to the patient's venous disease. The patient has been counseled as to leg elevation. Patient's legs are to be elevated as much as possible, even during daytime hours. Leg elevation is to be to heart level, or higher. She is to continue sleeping on a flat surface at night. Prolonged idle sitting has been discouraged. Activity has been encouraged. Weight loss has been recommended, as the patient is morbidly obese. Compression will be continued by means of Tubigrips, which will be applied daily by the patient until which time she is able to procure the graduated compression stockings of 20 to 30 mmHg compression. A prescription has been provided, and are to be obtained at the patient's local medical supply store. The patient is to continue the use of Promogran applied topically on a daily basis, as well as intermittent use of MediHoney. We will monitor the patient's response. Optimization of the marlen ent's nutrition has been recommended. The patient is to return to our facility in 2 weeks. Influenza vaccine was not administered today. The patient is not a smoker. Patient weighs 292 pounds. She stands 5 feet 7 inches tall. Her BMI is 45.7, which places her in a class III obesity category. Weight loss has been recommended, and collaboration with her primary care physician in this regard h as been advised.
== END 2019-11-06 23:59 ==
LOC: WC 08:00
PROVIDERS: Referring Provider Surgery; Visit Provider Surgery
DX: I83.219 Varicose veins of right lower extremity with both ulcer of unspecified site and inflammation (principal); L97.912 Non-pressure chronic ulcer of unspecified part of right lower leg with fat layer exposed; M79.89 Other specified soft tissue disorders; I10 Essential (primary) hypertension; D64.9 Anemia, unspecified; M79.7 Fibromyalgia; J45.909 Unspecified asthma, uncomplicated; E66.01 Morbid (severe) obesity due to excess calories; Z68.42 Body mass index [BMI] 45.0-49.9, adult; Z79.82 Long term (current) use of aspirin; Z79.899 Other long term (current) drug therapy; Z88.2 Allergy status to sulfonamides; Z88.1 Allergy status to other antibiotic agents
CPT/HCPCS: 11042